=== PATIENT | male | born 1990 | race Two or more races ===

== ENCOUNTER 2022-07-17 19:06 | Emergency (ER) | payer BC ==
[~2022-07-17] VITALS: Ht 180.3 cm; Wt 90.7 kg
[2022-07-17 19:14] VITALS: BP_SYST 136
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
--- NOTE | 2022-07-17 19:58 | NUR ---
ER examining patient in the waiting room.
[2022-07-17] MEDS ORDERED: IBUPROFEN 600 MG TABLET PO ONE (20:30)
[2022-07-17] MEDS ORDERED: HYDROcodone/ACETAMIN 5-325 MG TAB (NORCO/ VICODIN) PO ONE (20:30)
--- NOTE | 2022-07-17 21:40 | NUR ---
Patient to ER bed ZAMBRANO 1 to gown for evaluation. Side rails up. Report given to ARMAAN CABALLERO.
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
--- NOTE | 2022-07-17 23:30 | NUR ---
Patient resting in bed with side rails raised. Patient is watching movie on cell phone at this time. Nad noted at this time.
--- NOTE | 2022-07-18 00:07 | NUR ---
Patient given written and verbal discharge instructions and verbalizes understanding. ER MD discussed with patient the results and treatment provided. Patient in stable condition. ID arm band removed. no Rx of given. Patient educated on pain management and to follow up with PMD. Pain Scale 5/10. Opportunity for questions provided and answered. Medication side effect fact sheet provided.
[2022-07-18 00:09] VITALS: BP_SYST 126
== END 2022-07-18 00:09 | disposition home or self-care (01) ==
LOC: SED 19:06
DX: S80.811A Abrasion, right lower leg, initial encounter (principal); S80.812A Abrasion, left lower leg, initial encounter; S50.312A Abrasion of left elbow, initial encounter; F17.200 Nicotine dependence, unspecified, uncomplicated; Z79.899 Other long term (current) drug therapy; V89.2XXA Person injured in unspecified motor-vehicle accident, traffic, initial encounter; Y93.89 Activity, other specified; Y92.89 Other specified places as the place of occurrence of the external cause; Y99.8 Other external cause status
CPT/HCPCS: 73590-TC; 99284